=== PATIENT | female | born 1965 | race African-American/Black ===

== ENCOUNTER 2016-04-24 08:45 | Emergency (ER) | payer BC ==
[~2016-04-24] VITALS: Ht 162.6 cm; Wt 118.4 kg
[2016-04-24] MEDS ORDERED: IV NORMAL SALINE 1000ML BAG 1,000 ML IV SCH (09:24)
[2016-04-24 10:01] LABS: BASO # 0.1 x10^3/uL (0.0-0.2); BASO % 1 % (0-3); BILIRUBIN,URINE NEGATIVE (NEG); EOS % 1 % (0-3); GLUCOSE,URINE >=1000 mg/dL (NEG); HEMATOCRIT 44.2 % (36.0-47.0); HEMOGLOBIN 15.3 g/dL (12.0-15.5); LYMPH # 3.3 x10^3/uL (1.0-4.8); LYMPH % 37 % (24-48); MEAN CORPUSCULAR HEMOGLOBIN 28 pg (25-35); MEAN CORPUSCULAR HGB CONC 35 g/dL (31-37); MEAN CORPUSCULAR VOLUME 80 fL (79-100); MONO % 8 % (0-9); NEUT % 54 % (31-73); NITRITE,URINE NEGATIVE (NEG); PH,URINE 5.5; PLATELET COUNT 446 x10^3/uL (140-400); PROTEIN,URINE NEGATIVE (NEG-TRACE); RED BLOOD COUNT 5.51 x10^6/uL (3.50-5.40); RED CELL DISTRIBUTION WIDTH 13.3 % (11.5-14.5); UROBILINOGEN,URINE 0.2 mg/dL (0.2 mg/dL); WHITE BLOOD COUNT 8.9 x10^3/uL (4.0-11.0)
[2016-04-24 10:18] LABS: CALCIUM 10.1 mg/dL (8.5-10.1); CREATININE 1.1 mg/dL (0.6-1.0); GFR 63.9; POTASSIUM 4.2 mmol/L (3.5-5.1)
[2016-04-24 10:24] LABS: ALBUMIN 4.2 g/dL (3.4-5.0); ALBUMIN/GLOBULIN RATIO 0.8 (1.0-1.7); TOTAL BILIRUBIN 0.5 mg/dL (0.2-1.0); TOTAL PROTEIN 9.2 g/dL (6.4-8.2)
[2016-04-24 10:25] LABS: BACTERIA,URINE MODERATE /HPF (0-FEW); RBC,URINE 0 /HPF (0-2); SQUAMOUS EPITHELIAL CELL,UR MOD /LPF; WBC,URINE OCC /HPF (0-4)
[2016-04-24 11:00] VITALS: BP 151/90
--- NOTE | 2016-04-24 11:28 | PHYS DOC ---
Past Medical History Past Medical History: Anxiety, Diabetes-Type II, High Cholesterol, Hypertension Additional Past Medical Histor: DM Past Surgical History: Alcohol Use: None Drug Use: None Adult General Chief Complaint Chief Complaint: BLOOD SUGAR PROBLEM HPI HPI Patient is a 50 year old female who presents with high blood sugar for one month and leg cramps this morning which prompted arrival to the ED today stating she is concerned about her Potassium level. She reports an appt with her PCP on 05/05/16 to discuss her high blood sugars. States was 583 at home today and after insulin came down to 404. Denies fever, abdominal pain, n/v/d, urinary symptoms, cough, or accompanying symptoms. Review of Systems Review of Systems Constitutional: Denies fever or chills Eyes: Denies change in visual acuity, redness, or eye pain HENT: Denies nasal congestion or sore throat Respiratory: Denies cough or shortness of breath Cardiovascular: No additional information not addressed in HPI GI: Denies abdominal pain, nausea, vomiting, bloody stools or diarrhea : Denies dysuria or hematuria Musculoskeletal: Denies back pain or joint pain. Leg cramps this am Integument: Denies rash or skin lesions Neurologic: Denies headache, focal weakness or sensory changes Endocrine: Denies polyuria or polydipsia Current Medications Current Medications Current Medications Medications (Trade) Dose Ordered Sig/Danielito Start Time Stop Time Status Last Admin Dose Admin Sodium Chloride (Iv Sodium Chloride 0.9% 1000ml Bag) 1,000 ml @ 1,000 mls/hr Q1H 04/24/16 09:24 04/24/16 10:23 DC 04/24/16 09:51 1,000 MLS/HR Allergies Allergies Allergies Coded Allergies Type Severity Reaction Last Updated Verified No Known Drug Allergies 10/23/15 No Physical Exam Physical Exam Constitutional: Well developed, well nourished, no acute distress, non-toxic appearance. HENT: Normocephalic, atraumatic, bilateral external ears normal, oropharynx moist, no oral exudates, nose normal. Eyes: PERRLA, EOMI, conjunctiva normal, no discharge. Neck: Normal range of motion, no tenderness, supple, no stridor. Cardiovascular:Heart rate regular rhythm, no murmur Lungs & Thorax: Bilateral breath sounds clear to auscultation Abdomen: Bowel sounds normal, soft, no tenderness, no masses, no pulsatile masses. Skin: Warm, dry, no erythema, no rash. Back: No tenderness, no CVA tenderness. Extremities: No tenderness, no cyanosis, no clubbing, ROM intact, no edema. Neurologic: Alert and oriented X 3, normal motor function, normal sensory function, no focal deficits noted. Psychologic: Affect normal, judgement normal, mood normal. Current Patient Data Vital Signs Vital Signs Date Time Temp Pulse Resp B/P Pulse Ox O2 Delivery O2 Flow Rate FiO2 04/24/16 11:00 90 28 151/90 100 Room Air 04/24/16 09:00 98.3 98.3 Lab Values Laboratory Tests Test 04/24/16 09:03 04/24/16 09:50 04/24/16 11:02 Glucose (Fingerstick) 403mg/dL (70-99) H 265mg/dL (70-99) H White Blood Count 8.9x10^3/uL (4.0-11.0) Red Blood Count 5.51x10^6/uL (3.50-5.40) H Hemoglobin 15.3g/dL (12.0-15.5) Hematocrit 44.2% (36.0-47.0) Mean Corpuscular Volume 80fL (79-100) Mean Corpuscular Hemoglobin 28pg (25-35) Mean Corpuscular Hemoglobin Concent 35g/dL (31-37) Red Cell Distribution Width 13.3% (11.5-14.5) Platelet Count 446x10^3/uL (140-400) H Neutrophils (%) (Auto) 54% (31-73) Lymphocytes (%) (Auto) 37% (24-48) Monocytes (%) (Auto) 8% (0-9) Eosinophils (%) (Auto) 1% (0-3) Basophils (%) (Auto) 1% (0-3) Neutrophils # (Auto) 4.8x10^3uL (1.8-7.7) Lymphocytes # (Auto) 3.3x10^3/uL (1.0-4.8) Monocytes # (Auto) 0.7x10^3/uL (0.0-1.1) Eosinophils # (Auto) 0.1x10^3/uL (0.0-0.7) Basophils # (Auto) 0.1x10^3/uL (0.0-0.2) Urine Collection Type Void Urine Color Yellow Urine Clarity Clear Urine pH 5.5 Urine Specific [place] 1.025 Urine Protein Negativemg/dL (NEG-TRACE) Urine Glucose (UA) >=1000mg/dL (NEG) Urine Ketones (Stick) Negativemg/dL (NEG) Urine Blood Negative (NEG) Urine Nitrite Negative (NEG) Urine Bilirubin Negative (NEG) Urine Urobilinogen Dipstick 0.2mg/dL (0.2 mg/dL) Urine Leukocyte Esterase Negative (NEG) Urine RBC 0/HPF (0-2) Urine WBC Occ/HPF (0-4) Urine Squamous Epithelial Cells Mod/LPF Urine Bacteria Moderate/HPF (0-FEW) Urine Mucus Slight/LPF Sodium Level 135mmol/L (136-145) L Potassium Level 4.2mmol/L (3.5-5.1) Chloride Level 94mmol/L (98-107) L Carbon Dioxide Level 32mmol/L (21-32) Anion Gap 9 (6-14) Blood Urea Nitrogen 11mg/dL (7-20) Creatinine 1.1mg/dL (0.6-1.0) H Estimated GFR (Cockcroft-Gault) 63.9 BUN/Creatinine Ratio 10 (6-20) Glucose Level 355mg/dL (70-99) H Calcium Level 10.1mg/dL (8.5-10.1) Total Bilirubin 0.5mg/dL (0.2-1.0) Aspartate Amino Transferase (AST) 19U/L (15-37) Alanine Aminotransferase (ALT) 23U/L (14-59) Alkaline Phosphatase 137U/L (46-116) H Total Protein 9.2g/dL (6.4-8.2) H Albumin 4.2g/dL (3.4-5.0) Albumin/Globulin Ratio 0.8 (1.0-1.7) L Laboratory Tests 04/24/16 09:50 Laboratory Tests 04/24/16 09:50 EKG EKG [] Radiology/Procedures Radiology/Procedures [] Impressions: 1. Leg cramps 2. DM II Course & Med Decision Making Course & Med Decision Making Pertinent Labs and Imaging studies reviewed. (See chart for details) cbc, cmp, ua unremarkable. NS 1 liter bolus given. Bedside accucheck 200's. Instructed patient to attempt earlier appointment to discuss ongoing high blood sugar. Also instructed to return with return of high blood sugar, n/v/d, pain, fever or any concerns. Patient agreed with plan of care. Dragon Disclaimer Dragon Disclaimer This electronic medical record was generated, in whole or in part, using a voice recognition dictation system. Departure Departure Impression: Primary Impression: Leg cramps Additional Impression: Diabetes mellitus Disposition: HOME, SELF-CARE Condition: STABLE Referrals: UNKNOWN PCP NAME (PCP) Patient Instructions: Leg Cramps Additional Instructions: 1. Follow up with your primary doctor as we discussed to discuss your recurrent high blood sugars. 2. Return if any problems or concerns Problem Qualifiers DAVID GARCIA APRN Apr 24, 2016 11:28
== END 2016-04-24 11:44 | disposition home or self-care (01) ==
LOC: ER 08:45
DX: E11.65 Type 2 diabetes mellitus with hyperglycemia (principal); R25.2 Cramp and spasm; F41.9 Anxiety disorder, unspecified; E78.00 Pure hypercholesterolemia, unspecified; I10 Essential (primary) hypertension
CPT/HCPCS: 36415; 80053; 81001; 82947; 85027; 87086; 96360; 99284; J7030

== ENCOUNTER 2016-04-27 07:23 | Emergency (ER) | payer BC ==
[~2016-04-27] VITALS: Ht 162.6 cm; Wt 118.4 kg
--- NOTE | 2016-04-27 07:52 | PHYS DOC ---
Past Medical History Past Medical History: Anxiety, Diabetes-Type II, High Cholesterol, Hypertension Additional Past Medical Histor: DM Past Surgical History: Alcohol Use: None Drug Use: None Adult General Chief Complaint Chief Complaint: BLOOD SUGAR PROBLEM HPI HPI Patient is a 50 year old female with a history of hypertension, high cholesterol, diabetes type 2, and anxiety presents today complaining of having high blood sugars. Patient states she checked her blood sugar this morning, it was 419 and she used her normal insulin. Patient states she would like us to fix her blood sugars so that they are not high. She states she was seen in the ED and has-day-old this previous week for the same complaint. Patient denies any chest pain shortness of breath. Patient states she has an appointment with her PCP on Thursday this week which is 2 days away. PCP is Dr. Marion at . Review of Systems Review of Systems Constitutional: Denies fever or chills [] Eyes: Denies change in visual acuity, redness, or eye pain [] HENT: Denies nasal congestion or sore throat [] Respiratory: Denies cough or shortness of breath [] Cardiovascular: No additional information not addressed in HPI [] GI: Denies abdominal pain, nausea, vomiting, bloody stools or diarrhea [] : Denies dysuria or hematuria [] Musculoskeletal: Denies back pain or joint pain [] Integument: Denies rash or skin lesions [] Neurologic: Denies headache, focal weakness or sensory changes [] Endocrine:high blood sugars Current Medications Current Medications Current Medications Medications (Trade) Dose Ordered Sig/Danielito Start Time Stop Time Status Last Admin Dose Admin Insulin Human Regular (Novolin R Vial) 10 unit 1X ONCE 04/27/16 09:15 04/27/16 09:16 DC 04/27/16 09:29 10 UNIT Sodium Chloride (Iv Sodium Chloride 0.9% 1000ml Bag) 1,000 ml @ 1,000 mls/hr 1X ONCE 04/27/16 08:00 04/27/16 08:59 DC 04/27/16 08:06 1,000 MLS/HR Allergies Allergies Allergies Coded Allergies Type Severity Reaction Last Updated Verified No Known Drug Allergies 10/23/15 No Physical Exam Physical Exam Constitutional: Well developed, well nourished, no acute distress, non-toxic appearance. [] HENT: Normocephalic, atraumatic, bilateral external ears normal, oropharynx moist, no oral exudates, nose normal. [] Eyes: PERRLA, EOMI, conjunctiva normal, no discharge. [] Neck: Normal range of motion, no tenderness, supple, no stridor. [] Cardiovascular:Heart rate regular rhythm, no murmur [] Lungs & Thorax: Bilateral breath sounds clear to auscultation [] Abdomen: Bowel sounds normal, soft, no tenderness, no masses, no pulsatile masses. [] Skin: Warm, dry, no erythema, no rash. [] Back: No tenderness, no CVA tenderness. [] Extremities: No tenderness, no cyanosis, no clubbing, ROM intact, no edema. [] Neurologic: Alert and oriented X 3, normal motor function, normal sensory function, no focal deficits noted. [] Psychologic: Affect normal, judgement normal, mood normal. [] Current Patient Data Vital Signs Vital Signs Date Time Temp Pulse Resp B/P Pulse Ox O2 Delivery O2 Flow Rate FiO2 04/27/16 07:30 98.3 103 18 137/88 97 Room Air 98.3 Lab Values Laboratory Tests Test 04/27/16 07:35 04/27/16 08:00 04/27/16 10:03 Sodium Level 135mmol/L (136-145) L Potassium Level 4.3mmol/L (3.5-5.1) Chloride Level 95mmol/L (98-107) L Carbon Dioxide Level 33mmol/L (21-32) H Anion Gap 7 (6-14) Blood Urea Nitrogen 11mg/dL (7-20) Creatinine 0.9mg/dL (0.6-1.0) Estimated GFR (Cockcroft-Gault) 80.5 BUN/Creatinine Ratio 12 (6-20) Glucose Level 430mg/dL (70-99) H Calcium Level 9.4mg/dL (8.5-10.1) Total Bilirubin 0.5mg/dL (0.2-1.0) Aspartate Amino Transferase (AST) 12U/L (15-37) L Alanine Aminotransferase (ALT) 22U/L (14-59) Alkaline Phosphatase 112U/L (46-116) Total Protein 8.0g/dL (6.4-8.2) Albumin 3.7g/dL (3.4-5.0) Albumin/Globulin Ratio 0.9 (1.0-1.7) L Lipase 113U/L (73-393) White Blood Count 6.0x10^3/uL (4.0-11.0) Red Blood Count 4.92x10^6/uL (3.50-5.40) Hemoglobin 13.6g/dL (12.0-15.5) Hematocrit 40.7% (36.0-47.0) Mean Corpuscular Volume 83fL (79-100) Mean Corpuscular Hemoglobin 28pg (25-35) Mean Corpuscular Hemoglobin Concent 34g/dL (31-37) Red Cell Distribution Width 13.2% (11.5-14.5) Platelet Count 314x10^3/uL (140-400) Neutrophils (%) (Auto) 63% (31-73) Lymphocytes (%) (Auto) 28% (24-48) Monocytes (%) (Auto) 6% (0-9) Eosinophils (%) (Auto) 2% (0-3) Basophils (%) (Auto) 1% (0-3) Neutrophils # (Auto) 3.8x10^3uL (1.8-7.7) Lymphocytes # (Auto) 1.7x10^3/uL (1.0-4.8) Monocytes # (Auto) 0.4x10^3/uL (0.0-1.1) Eosinophils # (Auto) 0.1x10^3/uL (0.0-0.7) Basophils # (Auto) 0.1x10^3/uL (0.0-0.2) Urine Collection Type Void Urine Color Yellow Urine Clarity Clear Urine pH 6.5 Urine Specific [place] 1.025 Urine Protein Negativemg/dL (NEG-TRACE) Urine Glucose (UA) >=1000mg/dL (NEG) Urine Ketones (Stick) Tracemg/dL (NEG) Urine Blood Trace (NEG) Urine Nitrite Negative (NEG) Urine Bilirubin Negative (NEG) Urine Urobilinogen Dipstick 0.2mg/dL (0.2 mg/dL) Urine Leukocyte Esterase Trace (NEG) Urine RBC 0/HPF (0-2) Urine WBC 5-10/HPF (0-4) Urine Squamous Epithelial Cells Mod/LPF Urine Bacteria Mod/HPF (0-FEW) Urine Yeast Present/HPF Glucose (Fingerstick) 320mg/dL (70-99) H Laboratory Tests 04/27/16 08:00 Laboratory Tests 04/27/16 07:35 EKG EKG [] Radiology/Procedures Radiology/Procedures [] Course & Med Decision Making Course & Med Decision Making Pertinent Labs and Imaging studies reviewed. (See chart for details) This is a well-appearing patient who presents today complaining of high blood sugars. She states her blood sugar was 419 at home. She used insulin prior to coming to the ED. She has no other complaints. CBC no acute findings, CMP with glucose of 430, no anion gap. Urine positive for yeast infection, glucose greater than 1000 in urine, trace ketones urine, WBCs 5-10, no infection. Patient will be discharged with fluconazole for the yeast infection which is probably from her uncontrolled diabetes. She was given two liters of IV fluids and 10 units of regular insulin IV in the Ed. blood glucose came down to 320 prior to discharge. She has insulin at home which i encouraged her to continue using. She has an appointment with her PCP for blood sugar management on Thursday which is two days ago. She was provided return precautions and discharged in stable condition. Dragon Disclaimer Dragon Disclaimer This electronic medical record was generated, in whole or in part, using a voice recognition dictation system. Departure Departure Impression: Primary Impression: Hyperglycemia Additional Impression: Yeast infection Disposition: HOME, SELF-CARE Condition: STABLE Referrals: UNKNOWN PCP NAME (PCP) Patient Instructions: Diabetes Meal Planning Guide, Diabetes and Exercise- Sports[facility] Additional Instructions: You were seen for hyperglycemia. Please continue using your insulin at home. Follow-up with your doctor on Thursday as scheduled. Urine had a yeast infection. We put you on fluconazole. The yeast infection is probably from uncontrolled diabetes. Come back to the emergency room if you develope any concerning symptoms. Scripts Fluconazole (Diflucan)150 Mg Tablet1 Tab PO ONCE #1 TAB Ref 0 Prov:WILLIAM MARROQUIN APRN 04/27/16 Problem Qualifiers MARLENGueritaWILLIAM [employer] DEVELOPER Apr 27, 2016 07:52
[2016-04-27] MEDS ORDERED: IV NORMAL SALINE 1000ML BAG 1,000 ML IV ONE ×2 (08:00)
[2016-04-27 08:17] LABS: BASO # 0.1 x10^3/uL (0.0-0.2); BASO % 1 % (0-3); EOS % 2 % (0-3); HEMATOCRIT 40.7 % (36.0-47.0); HEMOGLOBIN 13.6 g/dL (12.0-15.5); LYMPH # 1.7 x10^3/uL (1.0-4.8); LYMPH % 28 % (24-48); MEAN CORPUSCULAR HEMOGLOBIN 28 pg (25-35); MEAN CORPUSCULAR HGB CONC 34 g/dL (31-37); MEAN CORPUSCULAR VOLUME 83 fL (79-100); MONO % 6 % (0-9); NEUT % 63 % (31-73); PLATELET COUNT 314 x10^3/uL (140-400); RED BLOOD COUNT 4.92 x10^6/uL (3.50-5.40); RED CELL DISTRIBUTION WIDTH 13.2 % (11.5-14.5)
[2016-04-27 08:21] LABS: BILIRUBIN,URINE NEGATIVE (NEG); GLUCOSE,URINE >=1000 mg/dL (NEG); NITRITE,URINE NEGATIVE (NEG); PH,URINE 6.5; PROTEIN,URINE NEGATIVE (NEG-TRACE); UROBILINOGEN,URINE 0.2 mg/dL (0.2 mg/dL)
[2016-04-27 08:28] LABS: CALCIUM 9.4 mg/dL (8.5-10.1); CREATININE 0.9 mg/dL (0.6-1.0); GFR 80.5; POTASSIUM 4.3 mmol/L (3.5-5.1)
[2016-04-27 08:32] LABS: BACTERIA,URINE MOD /HPF (0-FEW); RBC,URINE 0 /HPF (0-2); SQUAMOUS EPITHELIAL CELL,UR MOD /LPF
[2016-04-27 08:33] LABS: YEAST,URINE PRESENT /HPF
[2016-04-27 08:34] LABS: ALBUMIN 3.7 g/dL (3.4-5.0); ALBUMIN/GLOBULIN RATIO 0.9 (1.0-1.7); TOTAL BILIRUBIN 0.5 mg/dL (0.2-1.0)
[2016-04-27] MEDS ORDERED: INSULIN REGULAR 100 UNIT/ML 10ML VIAL. IV ONE (09:15)
[2016-04-27] MEDS ORDERED: FLUC150T PO (10:04)
[2016-04-27 10:12] VITALS: BP 132/79
== END 2016-04-27 10:14 | disposition home or self-care (01) ==
LOC: ER 07:23
DX: E11.65 Type 2 diabetes mellitus with hyperglycemia (principal); B37.9 Candidiasis, unspecified; E78.00 Pure hypercholesterolemia, unspecified; I10 Essential (primary) hypertension; F41.9 Anxiety disorder, unspecified; Z79.4 Long term (current) use of insulin
CPT/HCPCS: 36415; 80053; 81001; 82947; 83690; 85027; 96361; 96374; 99285; J1815; J7030

== ENCOUNTER 2016-06-20 13:03 | Emergency (ER) | payer SELFPAY ==
[~2016-06-20] VITALS: Ht 162.6 cm; Wt 112.5 kg
[~2016-06-20 13:03] MED LIST: FLUC150T PO
--- NOTE | 2016-06-20 13:31 | PHYS DOC ---
Past Medical History Past Medical History: Anxiety, Diabetes-Type II, High Cholesterol, Hypertension Additional Past Medical Histor: DM Past Surgical History: , Other Additional Past Surgical Histo: L ARM SURG (SKIN GRAFT) Alcohol Use: None Drug Use: None Adult General Chief Complaint Chief Complaint: BLOOD SUGAR PROBLEM HPI HPI Patient is a 50 year old female who presents with dizziness and urinary frequency. She lost her insurance several months ago and has been trying to make her insulin 70/30 last. She states she takes 18 units twice a day. She's been skipping at least one dose per day. She states her meters running in the 400 range. She has an appointment in June. She is mostly taking metformin but states secondary GI issues as hard for her to take the dose required. States it she's been checking her sugars about 3 times daily lately. Review of Systems Review of Systems Constitutional: Denies fever or chills [] Eyes: Denies change in visual acuity, redness, or eye pain [] HENT: Denies nasal congestion or sore throat [] Respiratory: Denies cough or shortness of breath [] Cardiovascular: No additional information not addressed in HPI [] GI: Denies abdominal pain, nausea, vomiting, bloody stools or diarrhea [] : Denies dysuria or hematuria [] Musculoskeletal: Denies back pain or joint pain [] Integument: Denies rash or skin lesions [] Neurologic: Denies headache, focal weakness or sensory changes [] Endocrine: Positive for polyuria and polydipsia. Current Medications Current Medications Current Medications Medications (Trade) Dose Ordered Sig/Danielito Start Time Stop Time Status Last Admin Dose Admin Insulin Human Regular (Novolin R Vial) 10 unit 1X ONCE 06/20/16 14:30 06/20/16 14:31 DC 06/20/16 14:50 10 UNIT Sodium Chloride (Iv Sodium Chloride 0.9% 1000ml Bag) 1,000 ml @ 1,000 mls/hr 1X ONCE 06/20/16 14:15 06/20/16 15:14 06/20/16 13:15 1,000 MLS/HR Allergies Allergies Allergies Coded Allergies Type Severity Reaction Last Updated Verified No Known Drug Allergies 10/23/15 No Physical Exam Physical Exam Constitutional: Well developed, well nourished, no acute distress, non-toxic appearance. [] HENT: Normocephalic, atraumatic, bilateral external ears normal, oropharynx moist, no oral exudates, nose normal. [] Eyes: PERRLA, EOMI, conjunctiva normal, no discharge. [] Neck: Normal range of motion, no tenderness, supple, no stridor. [] Cardiovascular:Heart rate regular rhythm, no murmur [] Lungs & Thorax: Bilateral breath sounds clear to auscultation [] Abdomen: Bowel sounds normal, soft, no tenderness, no masses, no pulsatile masses. [] Skin: Warm, dry, no erythema, no rash. [] Back: No tenderness, no CVA tenderness. [] Extremities: No tenderness, no cyanosis, no clubbing, ROM intact, no edema. [] Neurologic: Alert and oriented X 3, normal motor function, normal sensory function, no focal deficits noted. [] Psychologic: Affect normal, judgement normal, mood normal. [] Current Patient Data Vital Signs Vital Signs Date Time Temp Pulse Resp B/P Pulse Ox O2 Delivery O2 Flow Rate FiO2 06/20/16 13:19 98 107 18 126/97 98 Room Air 98.0 Lab Values Laboratory Tests Test 06/20/16 13:25 06/20/16 13:30 06/20/16 13:32 White Blood Count 6.9x10^3/uL (4.0-11.0) Red Blood Count 5.16x10^6/uL (3.50-5.40) Hemoglobin 14.6g/dL (12.0-15.5) Hematocrit 42.6% (36.0-47.0) Mean Corpuscular Volume 83fL (79-100) Mean Corpuscular Hemoglobin 28pg (25-35) Mean Corpuscular Hemoglobin Concent 34g/dL (31-37) Red Cell Distribution Width 12.9% (11.5-14.5) Platelet Count 360x10^3/uL (140-400) Neutrophils (%) (Auto) 50% (31-73) Lymphocytes (%) (Auto) 41% (24-48) Monocytes (%) (Auto) 7% (0-9) Eosinophils (%) (Auto) 1% (0-3) Basophils (%) (Auto) 1% (0-3) Neutrophils # (Auto) 3.4x10^3uL (1.8-7.7) Lymphocytes # (Auto) 2.8x10^3/uL (1.0-4.8) Monocytes # (Auto) 0.5x10^3/uL (0.0-1.1) Eosinophils # (Auto) 0.1x10^3/uL (0.0-0.7) Basophils # (Auto) 0.1x10^3/uL (0.0-0.2) Sodium Level 132mmol/L (136-145) L Potassium Level 3.7mmol/L (3.5-5.1) Chloride Level 94mmol/L (98-107) L Carbon Dioxide Level 30mmol/L (21-32) Anion Gap 8 (6-14) Blood Urea Nitrogen 7mg/dL (7-20) Creatinine 1.0mg/dL (0.6-1.0) Estimated GFR (Cockcroft-Gault) 71.3 BUN/Creatinine Ratio 7 (6-20) Glucose Level 515mg/dL (70-99) *H Calcium Level 9.2mg/dL (8.5-10.1) Total Bilirubin 0.3mg/dL (0.2-1.0) Aspartate Amino Transferase (AST) 23U/L (15-37) Alanine Aminotransferase (ALT) 28U/L (14-59) Alkaline Phosphatase 145U/L (46-116) H Creatine Kinase 100U/L (26-192) Creatine Kinase MB (Mass) 0.8ng/mL (0.0-3.6) Creatine Kinase MB Relative Index 0.8% (0-4) Troponin I Quantitative < 0.017ng/mL (0.000-0.055) Total Protein 7.8g/dL (6.4-8.2) Albumin 3.5g/dL (3.4-5.0) Albumin/Globulin Ratio 0.8 (1.0-1.7) L Urine Collection Type Unknown Urine Color Yellow Urine Clarity Clear Urine pH 6.0 Urine Specific [place] >=1.030 Urine Protein Negativemg/dL (NEG-TRACE) Urine Glucose (UA) >=1000mg/dL (NEG) Urine Ketones (Stick) Negativemg/dL (NEG) Urine Blood Negative (NEG) Urine Nitrite Negative (NEG) Urine Bilirubin Negative (NEG) Urine Urobilinogen Dipstick 0.2mg/dL (0.2 mg/dL) Urine Leukocyte Esterase Negative (NEG) Urine RBC 0/HPF (0-2) Urine WBC 0/HPF (0-4) Urine Squamous Epithelial Cells Mod/LPF Urine Bacteria Moderate/HPF (0-FEW) Urine Test Negative (NEG) Glucose (Fingerstick) 471mg/dL (70-99) H Laboratory Tests 06/20/16 13:25 Laboratory Tests 06/20/16 13:25 EKG EKG KG shows sinus rhythm with a rate of [address] elevations or inversion noted in lead III, left axis deviation, QTC 474 ms, as interpreted by me. Radiology/Procedures Radiology/Procedures [] Impressions: Hyperglycemia Course & Med Decision Making Course & Med Decision Making Pertinent Labs and Imaging studies reviewed. (See chart for details) Lab does not show DKA, she does have glucose in the 500s. She received 10 units Humalog subcutaneous and I refilled prescriptions for 7030 Humulin insulin. We talked about increasing her a.m. dose from 18-22 and then to 25 if she continues having elevated sugars. I specifically explained to her that the p.m. Sugar is a reflection of her a.m. insulin dose in the a.m. Sugar is a reflection of her p.m. insulin dose. She understands this fact and we spoke extensively about coming hypoglycemic. She does have a follow-up appointment within a month. She is agreeable primary discharged in stable condition. [place] Disclaimer eDvorah Disclaimer This electronic medical record was generated, in whole or in part, using a voice recognition dictation system. Departure Departure Impression: Primary Impression: Hyperglycemia Disposition: 01 HOME, SELF-CARE Condition: STABLE Referrals: UNKNOWN PCP NAME (PCP) Patient Instructions: Hyperglycemia, Ogen-fi-Palq Additional Instructions: Blood work shows that your glucoses in the 500 range. I does not show any other acute abnormalities. Your being discharged home. Please follow-up with your primary physician. You can continue taking 18 units of 70/30 twice daily and if your sugar still runs high all day long then increase the a.m. dose to 22 units and keep your p.m. dose at 18, if your PM sugars are still elevated, then increase your AM dose to 25 units in the morning and if you're a.m. sugars still remained elevated that he increase her p.m. dose to 20. Return ER for lightheadedness dizziness chest pain or other concerns. Scripts Hum Insulin Nph/Reg Insulin Hm (Humulin 70-30 Vial)100 Unit/1 Ml Vial18 Unit SQ BID #1 VIAL Prov:GABRIELLA APPIAH MD 06/20/16 GABRIELLA APPIAH MD Jun 20, 2016 13:31
[2016-06-20 13:42] LABS: BILIRUBIN,URINE NEGATIVE (NEG); GLUCOSE,URINE >=1000 mg/dL (NEG); NITRITE,URINE NEGATIVE (NEG); PROTEIN,URINE NEGATIVE (NEG-TRACE); UROBILINOGEN,URINE 0.2 mg/dL (0.2 mg/dL)
[2016-06-20 13:47] LABS: NEG OBC UR NEG; POS OBC UR POS
[2016-06-20 13:56] LABS: BASO # 0.1 x10^3/uL (0.0-0.2); BASO % 1 % (0-3); EOS % 1 % (0-3); HEMATOCRIT 42.6 % (36.0-47.0); HEMOGLOBIN 14.6 g/dL (12.0-15.5); LYMPH # 2.8 x10^3/uL (1.0-4.8); LYMPH % 41 % (24-48); MEAN CORPUSCULAR HEMOGLOBIN 28 pg (25-35); MEAN CORPUSCULAR HGB CONC 34 g/dL (31-37); MEAN CORPUSCULAR VOLUME 83 fL (79-100); MONO % 7 % (0-9); NEUT % 50 % (31-73); PLATELET COUNT 360 x10^3/uL (140-400); RED BLOOD COUNT 5.16 x10^6/uL (3.50-5.40); RED CELL DISTRIBUTION WIDTH 12.9 % (11.5-14.5); WHITE BLOOD COUNT 6.9 x10^3/uL (4.0-11.0)
[2016-06-20 13:58] LABS: BACTERIA,URINE MODERATE /HPF (0-FEW); RBC,URINE 0 /HPF (0-2); SQUAMOUS EPITHELIAL CELL,UR MOD /LPF; WBC,URINE 0 /HPF (0-4)
[2016-06-20] MEDS ORDERED: IV NORMAL SALINE 1000ML BAG 1,000 ML IV ONE (14:15)
[2016-06-20 14:18] LABS: ALBUMIN 3.5 g/dL (3.4-5.0); ALBUMIN/GLOBULIN RATIO 0.8 (1.0-1.7); CALCIUM 9.2 mg/dL (8.5-10.1); GFR 71.3; POTASSIUM 3.7 mmol/L (3.5-5.1); TOTAL BILIRUBIN 0.3 mg/dL (0.2-1.0); TOTAL PROTEIN 7.8 g/dL (6.4-8.2)
[2016-06-20] MEDS ORDERED: INSULIN REGULAR 100 UNIT/ML 10ML VIAL. IV ONE (14:30)
[2016-06-20 14:46] LABS: CKMB INDEX 0.8 % (0-4); CKMB MASS 0.8 ng/mL (0.0-3.6)
[2016-06-20] MEDS ORDERED: HUM100VI SQ (15:06)
[2016-06-20 15:20] VITALS: BP 147/91
--- NOTE | 2016-06-22 11:24 | EKG ---
[facility] [address] [place] [id number] Test Date: 2016-06-20 Test Time: 14:14:30 Pat Name: VINEET HAYES Department: Room: Gender: F [employer]er: : 1965 Requested By: GABRIELLA APPIAH Order Number: [id number] Reading MD: Measurements Intervals [place] Rate: 91 P: 19 IA: 146 QRS: -15 QRSD: 88 T: 13 QT: 384 QTc: 474 Interpretive Statements SINUS RHYTHM LEFTWARD AXIS R-S TRANSITION ZONE IN V LEADS DISPLACED TO THE LEFT CONSIDER LEFT VENTRICULAR HYPERTROPHY PROLONGED QT POSSIBLY ABNORMAL ECG RI6.01 No previous ECG available for comparison
== END 2016-06-20 15:22 | disposition home or self-care (01) ==
LOC: ER 13:03
DX: E11.65 Type 2 diabetes mellitus with hyperglycemia (principal); I10 Essential (primary) hypertension; F41.9 Anxiety disorder, unspecified; E78.00 Pure hypercholesterolemia, unspecified
CPT/HCPCS: 36415; 80053; 81001; 81025; 82553; 82947; 84484; 85027; 87086; 93005; 96361; 96374; 99285; J7030; J1815

== ENCOUNTER 2016-08-20 07:57 | Emergency (ER) | payer SELFPAY ==
[~2016-08-20] VITALS: Ht 160 cm; Wt 107.5 kg
[2016-08-20 07:57] VITALS: BP 134/82
[~2016-08-20 07:57] MED LIST changes: +HUM100VI SQ
[2016-08-20] MEDS ORDERED: CLIN-44 PO (08:27)
--- NOTE | 2016-08-20 08:28 | PHYS DOC ---
Past Medical History Past Medical History: Anxiety, Diabetes-Type II, High Cholesterol, Hypertension Additional Past Medical Histor: DM Past Surgical History: , Other Additional Past Surgical Histo: L ARM SURG (SKIN GRAFT) Alcohol Use: None Drug Use: None Adult General Chief Complaint Chief Complaint: ABSCESS HPI HPI Patient is a 50 year old female presents to the emergency department with history of abscess on the left inner thigh. Patient states she has had the abscess for 1 week. She has been doing sitz bath daily at home with drainage noted. Patient states she believes that the area closes up. She denies fever, chills, nausea or vomiting. She is unsure when her last tetanus immunization occurred. Review of Systems Review of Systems Constitutional: Denies fever or chills [] Eyes: Denies change in visual acuity, redness, or eye pain [] HENT: Denies nasal congestion or sore throat [] Respiratory: Denies cough or shortness of breath [] Cardiovascular: No additional information not addressed in HPI [] GI: Denies abdominal pain, nausea, vomiting, bloody stools or diarrhea [] : Denies dysuria or hematuria [] Musculoskeletal: Denies back pain or joint pain [] Integument: Denies rash or skin lesions. Abscess to the left thigh Neurologic: Denies headache, focal weakness or sensory changes [] Endocrine: Denies polyuria or polydipsia [] Allergies Allergies Allergies Coded Allergies Type Severity Reaction Last Updated Verified No Known Drug Allergies 10/23/15 No Physical Exam Physical Exam Constitutional: Well developed, well nourished, no acute distress, non-toxic appearance. [] HENT: Normocephalic, atraumatic, bilateral external ears normal, oropharynx moist, no oral exudates, nose normal. [] Eyes: PERRLA, EOMI, conjunctiva normal, no discharge. [] Neck: Normal range of motion, no tenderness, supple, no stridor. [] Cardiovascular:Heart rate regular rhythm, no murmur [] Lungs & Thorax: Bilateral breath sounds clear to auscultation [] Skin: Warm, dry, no erythema, no rash. Abscess size of baseball to the left inner thigh with thin cream color drainage noted. No induration noted to the outer edges. Back: No tenderness Extremities: No tenderness, no cyanosis, no clubbing, ROM intact, no edema. [] Neurologic: Alert and oriented X 3, normal motor function, normal sensory function, no focal deficits noted. [] Psychologic: Affect normal, judgement normal, mood normal. [] Current Patient Data Vital Signs Vital Signs Date Time Temp Pulse Resp B/P (MAP) Pulse Ox O2 Delivery O2 Flow Rate FiO2 08/20/16 07:57 98.2 113 18 98 Room Air 98.2 EKG EKG [] Radiology/Procedures Radiology/Procedures [] Course & Med Decision Making Course & Med Decision Making Pertinent Labs and Imaging studies reviewed. (See chart for details) Expressed thin cream color drainage from the site. Spoke with patient about sitz bath 4 times a day for 20 minutes at a time. She will be updated with her tetanus. Patient will be placed on clindamycin. Recommended patient to followup with primary care provider. Patient agrees with discharge instructions, treatment regimen and followup recommendations. Patient will be provided with work note for 2 days. [] Dragon Disclaimer Dragon Disclaimer This electronic medical record was generated, in whole or in part, using a voice recognition dictation system. Departure Departure Impression: Primary Impression: Abscess Disposition: 01 HOME, SELF-CARE Condition: STABLE Referrals: NO PCP (PCP) Patient Instructions: Abscess, [id number] Additional Instructions: Activity as tolerated Medication as prescribed Tylenol or Ibuprofen for pain and discomfort Warm sitz bath 4 times a day for 20 minutes a times for the next 2-3 days Followup with your primary care provider in 3-5 days Return to emergency department as needed for signs and symptoms that become worse. Scripts Clindamycin Hcl (CLINDAMYCIN HCL) 150 Mg Capsule 3 CAP PO TID for 10 Days, CAP Prov: ROBERTH RODRIGUES APRN 08/20/16 ROBERTH RODRIGUES APRN August 20, 2016 08:28
== END 2016-08-20 08:49 | disposition home or self-care (01) ==
LOC: ER 07:57
DX: L02.416 Cutaneous abscess of left lower limb (principal); E11.9 Type 2 diabetes mellitus without complications; E78.00 Pure hypercholesterolemia, unspecified; I10 Essential (primary) hypertension
CPT/HCPCS: 99283

== ENCOUNTER 2017-08-12 19:23 | Emergency (ER) | payer OTHER ==
[2017-08-12] MEDS: IV NORMAL SALINE 500ML BAG 500 ML IV (20:13)
[2017-08-12 20:14] LABS: ADD MAN DIFF? NO
[2017-08-12 20:19] LABS: BASO # 0.1 x10^3/uL (0.0-0.2); BASO % 1 % (0-3); EOS # 0.1 x10^3/uL (0.0-0.7); EOS % 1 % (0-3); HEMATOCRIT 39.5 % (36.0-47.0); HEMOGLOBIN 13.9 g/dL (12.0-15.5); LYMPH # 3.1 x10^3/uL (1.0-4.8); LYMPH % 35 % (24-48); MEAN CORPUSCULAR HEMOGLOBIN 29 pg (25-35); MEAN CORPUSCULAR HGB CONC 35 g/dL (31-37); MEAN CORPUSCULAR VOLUME 82 fL (79-100); MONO # 0.6 x10^3/uL (0.0-1.1); MONO % 6 % (0-9); NEUT # 5.2 x10^3uL (1.8-7.7); NEUT % 57 % (31-73); PLATELET COUNT 424 x10^3/uL (140-400); RED BLOOD COUNT 4.83 x10^6/uL (3.50-5.40); RED CELL DISTRIBUTION WIDTH 12.4 % (11.5-14.5); WHITE BLOOD COUNT 9.1 x10^3/uL (4.0-11.0)
[2017-08-12 20:20] LABS: POC GLUCOSE 107 mg/dL (70-99)
[2017-08-12 20:20] LABS: BILIRUBIN,URINE NEGATIVE (NEG); CLARITY,URINE CLEAR; COLOR,URINE YELLOW; GLUCOSE,URINE NEGATIVE (NEG); NITRITE,URINE NEGATIVE (NEG); PROTEIN,URINE NEGATIVE (NEG-TRACE); UROBILINOGEN,URINE 0.2 mg/dL (0.2 mg/dL)
[2017-08-12 20:28] LABS: ANION GAP 8 (6-14); BLOOD UREA NITROGEN 16 mg/dL (7-20); CALCIUM 9.1 mg/dL (8.5-10.1); CARBON DIOXIDE 31 mmol/L (21-32); CHLORIDE 102 mmol/L (98-107); CREATININE 0.9 mg/dL (0.6-1.0); GFR 80.2; GLUCOSE 115 mg/dL (70-99); POTASSIUM 3.6 mmol/L (3.5-5.1); SODIUM 141 mmol/L (136-145)
[2017-08-12 20:49] LABS: BACTERIA,URINE MOD /HPF (0-FEW); RBC,URINE OCC /HPF (0-2); SQUAMOUS EPITHELIAL CELL,UR MOD /LPF
[2017-08-12] MEDS: IOHEXOL 300 MG/ML 100ML VIAL. IV (21:10)
== END 2017-08-12 20:19 | disposition home or self-care (01) ==
LOC: ER 19:23
DX: R10.30 Lower abdominal pain, unspecified (principal); E11.9 Type 2 diabetes mellitus without complications; E78.00 Pure hypercholesterolemia, unspecified; I10 Essential (primary) hypertension
CPT/HCPCS: 36415; 74177; 80048; 81001; 82962; 85025; 96374; 99285; J7040; Q9967

== ENCOUNTER 2017-10-01 14:03 | Emergency (ER) | payer OTHER ==
[2017-10-01] MEDS ORDERED: FUROSEMIDE 100 MG/10 ML VIAL. IVP (14:30)
[2017-10-01 14:56] LABS: ADD MAN DIFF? NO
[2017-10-01 15:00] LABS: BASO # 0.1 x10^3/uL (0.0-0.2); BASO % 1 % (0-3); EOS # 0.2 x10^3/uL (0.0-0.7); EOS % 2 % (0-3); HEMATOCRIT 41.8 % (36.0-47.0); HEMOGLOBIN 14.2 g/dL (12.0-15.5); LYMPH # 2.1 x10^3/uL (1.0-4.8); LYMPH % 28 % (24-48); MEAN CORPUSCULAR HEMOGLOBIN 28 pg (25-35); MEAN CORPUSCULAR HGB CONC 34 g/dL (31-37); MEAN CORPUSCULAR VOLUME 82 fL (79-100); MONO # 0.4 x10^3/uL (0.0-1.1); MONO % 5 % (0-9); NEUT # 4.6 x10^3uL (1.8-7.7); NEUT % 63 % (31-73); PLATELET COUNT 382 x10^3/uL (140-400); RED BLOOD COUNT 5.09 x10^6/uL (3.50-5.40); WHITE BLOOD COUNT 7.3 x10^3/uL (4.0-11.0)
[2017-10-01 15:18] LABS: ALBUMIN 3.4 g/dL (3.4-5.0); ALBUMIN/GLOBULIN RATIO 0.7 (1.0-1.7); ALK PHOS 196 U/L (46-116); ALT (SGPT) 28 U/L (14-59); ANION GAP 9 (6-14); AST (SGOT) 19 U/L (15-37); BLOOD UREA NITROGEN 9 mg/dL (7-20); BUN/CREATININE RATIO 10 (6-20); CARBON DIOXIDE 30 mmol/L (21-32); CHLORIDE 97 mmol/L (98-107); CREATININE 0.9 mg/dL (0.6-1.0); GFR 79.9; POTASSIUM 3.8 mmol/L (3.5-5.1); SODIUM 136 mmol/L (136-145); TOTAL BILIRUBIN 0.3 mg/dL (0.2-1.0); TOTAL PROTEIN 8.4 g/dL (6.4-8.2)
[2017-10-01 15:21] LABS: GLUCOSE 515 mg/dL (70-99)
[2017-10-01 15:22] LABS: TROPONINI < 0.017 ng/mL (0.000-0.055)
[2017-10-01 15:23] LABS: NT-PRO BNP 23 pg/mL (0-124)
[2017-10-01] MEDS: IPRATRPIUM/ALBUTEROL 0.5/2.5MG 3 ML NEBU. NEB (15:45)
[2017-10-01] MEDS: IV NORMAL SALINE 1000ML BAG 1,000 ML IV (16:13)
== END 2017-10-01 17:00 | disposition home or self-care (01) ==
LOC: ER 14:03
DX: J20.9 Acute bronchitis, unspecified (principal); E11.65 Type 2 diabetes mellitus with hyperglycemia; E78.00 Pure hypercholesterolemia, unspecified; I10 Essential (primary) hypertension; Z88.6 Allergy status to analgesic agent; Z88.5 Allergy status to narcotic agent; Z88.8 Allergy status to other drugs, medicaments and biological substances
CPT/HCPCS: 36415; 71045; 80053; 83880; 84484; 85025; 93005; 94640; 96360; 99285-25; J7030; J7620